=== PATIENT | female | born 2000 | race Caucasian/White ===

== ENCOUNTER 2022-03-24 13:05 | Emergency (ER) | payer BC ==
[~2022-03-24] VITALS: Ht 160 cm; Wt 61.0 kg
[~2022-03-24 13:05] MED LIST: AZIT200S47 PO; HYDR473S16 PO; [UNRECOGNIZED DRUG - CODE] PO; tetracaine lollipops PO
[2022-03-24] MEDS ORDERED: morphine INJ 10 MG/ML 1ML (SYR OR VIAL) IVP STA (13:19)
--- NOTE | 2022-03-24 13:21 | ED Abdominal Pain ---
General Chief Complaint: Abdominal/GI Problems Stated Complaint: ABD PAIN Nursing Triage Note: PT AMB TO ED BY POV WITH C/O RUQ PAIN BEGINNING YESTERDAY, WORSE TODAY. PT ALSO C/O NAUSEA, DENIES VOMITNG, FEVER, OR ANY URINARY SX AT THIS TIME. LBM YESTERDAY, NORMAL FOR HER. Source of Information: Patient Exam Limitations: No Limitations (BASIL GRIMM APRN) History of Present Illness Date Seen by Provider: Mar 24, 2022 Time Seen by Provider: 13:15 Initial Comments Patient is a 21-year-old female who presents to the emergency department for evaluation of right upper quadrant abdominal pain that began yesterday and is progressively worsened today. Patient states she is also had some nausea without vomiting. Last bowel movement was yesterday and normal. Patient denies any recent constipation or diarrhea. LMP was approximately 1 month ago. Patient denies any possibility of . Denies any alleviating or aggravating factors. (BASIL GRIMM APRN) Allergies and Home Medications Allergies Coded Allergies: amoxicillin (Unverified Allergy, Unknown, 03/24/22) RASH Patient Home Medication List Home Medication List Reviewed: Yes (BASIL GRIMM APRN) Azithromycin (Azithromycin 200 Mg/5 Ml Susp) 200 Mg/5 Ml Susp.recon, 1 TSP PO UD, (Reported) Entered as Reported by: LIYAH BURNS on 01/12/10 0935 Hydrocodone Bit/Acetaminophen (Lortab Elixir 7.5 Mg/15 Ml) 480 Ml Solution, 1 TSP PO Q4HR PRN, (Reported) Entered as Reported by: LIYAH BURNS on 01/12/10 0928 Hydrocodone Bit/Acetaminophen (HYDROcodone/APAP 5 MG/325 MG TAB) 1 Tab Tab, 1 TAB PO Q6H PRN for PAIN-MODERATE (5-7) Prescribed by: Basil Grimm on 03/24/22 1456 Ondansetron (Ondansetron Odt) 4 Mg Tab.rapdis, 4 MG SL Q4H PRN for NAUSEA/VOMITING Prescribed by: Basil Grimm on 03/24/22 1455 Polyethylene Glycol 3350 (Miralax) 17 Gram Powd.pack, 17 GM PO DAILY Prescribed by: Basil Grimm on 03/24/22 1455 [tetracaine lollipops] , 1 PO NEEDED, (Reported) Entered as Reported by: LIYAH BURNS on 01/12/10 0933 Review of Systems Review of Systems Constitutional: no symptoms reported EENTM: No Symptoms Reported Respiratory: No Symptoms Reported Cardiovascular: No Symptoms Reported Gastrointestinal: See HPI, Abdominal Pain, Nausea Genitourinary: No Symptoms Reported Musculoskeletal: no symptoms reported Skin: no symptoms reported Psychiatric/Neurological: No Symptoms Reported Endocrine: No Symptoms Reported Hematologic/Lymphatic: No Symptoms Reported (BASIL GRIMM APRN) Past Yayyuxe-Xkrgyg-Kfzyxw Hx Patient Social History Tobacco Use?: No Use of E-Cig and/or Vaping dev: No Substance use?: No Alcohol Use?: No Pt feels they are or have been: No (BASIL GRIMM APRN) Immunizations Up To Date Influenza Vaccine Up-to-Date: No; Not Current First/Initial COVID19 Vaccinat: X3 Second COVID19 Vaccination [place]: X3 Third COVID19 Vaccination Date: X3 (BSAIL GRIMM APRN) Past Medical History Surgery/Hospitalization HX: T&A Reproductive Disorders: No (BASIL GRIMM APRN) Physical Exam Vital Signs Vital Signs - First Documented 03/24/22 13:10 Temp 36.6 Pulse 96 Resp 16 B/P (MAP) 122/80 (94) Pulse Ox 100 O2 Delivery Room Air (REE VARGAS MD) Vital Signs Capillary Refill : Less Than 3 Seconds (BASIL GRIMM APRN) Height/Weight/BMI Height: '" Weight: lbs. oz. kg; 23.00 BMI Method: General Appearance: WD/WN, no apparent distress HEENT: PERRL/EOMI, normal ENT inspection, TMs normal, pharynx normal Neck: non-tender, full range of motion, supple, normal inspection Respiratory: chest non-tender, lungs clear Cardiovascular: regular rate, rhythm Gastrointestinal: normal bowel sounds, non tender, soft Extremities: normal range of motion, non-tender Neurologic/Psychiatric: no motor/sensory deficits, alert, normal mood/affect, oriented x 3 Skin: normal color, warm/dry (BASIL GRIMM APRN) Progress/Results/Core Measures Results/Orders Lab Results Laboratory Tests Test 03/24/22 13:15 03/24/22 13:22 Range/Units Urine Color YELLOW Urine Clarity CLOUDY Urine pH 6.5 5-9 Urine Specific [place] >=1.030 1.016-1.022 Urine Protein 2+ H NEGATIVE Urine Glucose (UA) NEGATIVE NEGATIVE Urine Ketones NEGATIVE NEGATIVE Urine Nitrite NEGATIVE NEGATIVE Urine Bilirubin NEGATIVE NEGATIVE Urine Urobilinogen 0.2 < = 1.0 MG/DL Urine Leukocyte Esterase 1+ H NEGATIVE Urine RBC (Auto) 3+ H NEGATIVE Urine RBC 50-100 H /HPF Urine WBC 5-10 H /HPF Urine Squamous Epithelial Cells 10-25 H /HPF Urine Crystals NONE /LPF Urine Bacteria FEW H /HPF Urine Casts NONE /LPF Urine Mucus MODERATE H /LPF Urine Culture Indicated YES White Blood Count 12.1 H 4.3-11.0 10^3/uL Red Blood Count 4.83 3.80-5.11 10^6/uL Hemoglobin 13.8 11.5-16.0 g/dL Hematocrit 41 35-52 % Mean Corpuscular Volume 84 80-99 fL Mean Corpuscular Hemoglobin 29 25-34 pg Mean Corpuscular Hemoglobin Concent 34 32-36 g/dL Red Cell Distribution Width 12.4 10.0-14.5 % Platelet Count 262 130-400 10^3/uL Mean Platelet Volume 10.4 9.0-12.2 fL Immature Granulocyte % (Auto) 0 % Neutrophils (%) (Auto) 80 H 42-75 % Lymphocytes (%) (Auto) 14 12-44 % Monocytes (%) (Auto) 6 0-12 % Eosinophils (%) (Auto) 1 0-10 % Basophils (%) (Auto) 0 0-10 % Neutrophils # (Auto) 9.6 H 1.8-7.8 10^3/uL Lymphocytes # (Auto) 1.7 1.0-4.0 10^3/uL Monocytes # (Auto) 0.7 0.0-1.0 10^3/uL Eosinophils # (Auto) 0.1 0.0-0.3 10^3/uL Basophils # (Auto) 0.1 0.0-0.1 10^3/uL Immature Granulocyte # (Auto) 0.0 0.0-0.1 10^3/uL Sodium Level 138 135-145 MMOL/L Potassium Level 4.1 3.6-5.0 MMOL/L Chloride Level 107 98-107 MMOL/L Carbon Dioxide Level 22 21-32 MMOL/L Anion Gap 9 5-14 MMOL/L Blood Urea Nitrogen 11 7-18 MG/DL Creatinine 0.79 0.60-1.30 MG/DL Estimat Glomerular Filtration Rate 110 BUN/Creatinine Ratio 14 Glucose Level 94 70-105 MG/DL Calcium Level 9.0 8.5-10.1 MG/DL Corrected Calcium 8.8 8.5-10.1 MG/DL Total Bilirubin 0.5 0.1-1.0 MG/DL Aspartate Amino Transf (AST/SGOT) 19 5-34 U/L Alanine Aminotransferase (ALT/SGPT) 16 0-55 U/L Alkaline Phosphatase 51 40-136 U/L Total Protein 6.5 6.4-8.2 GM/DL Albumin 4.2 3.2-4.5 GM/DL (REE VARGAS MD) Medications Given in ED Current Medications Medications Dose Ordered Sig/Cara Route Start Time Stop Time Status Last Admin Dose Admin Iohexol 100 ml ONCE ONCE IV 03/24/22 13:30 03/24/22 13:31 DC 03/24/22 13:46 80 ML Ketorolac Tromethamine 15 mg ONCE ONCE IVP 03/24/22 14:45 03/24/22 14:46 DC 03/24/22 14:48 15 MG Ondansetron HCl 4 mg ONCE ONCE IVP 03/24/22 13:30 03/24/22 13:31 DC 03/24/22 13:31 4 MG Sodium Chloride 100 ml ONCE ONCE IV 03/24/22 13:30 03/24/22 13:31 DC 03/24/22 13:46 80 ML (REE VARGAS MD) Vital Signs/I&O 03/24/22 03/24/22 13:10 15:02 Temp 36.6 36.6 Pulse 96 80 Resp 16 16 B/P (MAP) 122/80 (94) 118/77 Pulse Ox 100 100 O2 Delivery Room Air Room Air (REE VARGAS MD) Blood Pressure Mean: 94 Progress Progress Note : Progress Note Patient is nontoxic and well-hydrated on exam. Vital signs are reassuring. Abdominal exam notable for right upper quadrant tenderness to palpation. No abdominal distention or rigidity appreciated. Patient is awake alert and oriented and answers all questions appropriately. Patient ambulatory to the ER room without issue. Orders placed for CBC, CMP, urinalysis, bedside test, IV insertion, and CT of the abdomen pelvis with contrast. CBC is reassuring without leukocytosis. CMP without significant metabolic derangement. Bedside test is negative. Urinalysis notable for very mild pyuria as well as hematuria. Patient denying any urinary symptoms and there is no indication for antimicrobial therapy at this time pending urine culture. CT of the abdomen pelvis does show increased stool burden but no other acute abnormalities. Given location of pain biliary colic remains a possibility. No indication further diagnostics at this time. Patient was initially given an IV dose of morphine and Zofran for symptom control. On reassessment patient does still endorse significant pain and thus a dose of IV ketorolac was ordered. Patient will be discharged home with prescriptions for analgesia and antiemetics as well as MiraLAX. Discussed supportive care and anticipatory guidance. Follow-up with PCP. Return precautions for symptomology discussed. Also discussed importance of following up with general surgery for further evaluation. Patient verbalized understanding. (BASIL GRIMM APRN) Departure Impression Primary Impression: Right upper quadrant abdominal pain Disposition: 01 HOME, SELF-CARE Condition: Stable Departure-Patient Inst. Decision time for Depature: 14:45 (BASIL GRIMM APRN) Referrals: MARIANNE ABRAMS MD (PCP/Family) Primary Care Physician Patient Instructions: Abdominal Pain, Adult ED Scripts Polyethylene Glycol 3350 (Miralax) 17 Gram Powd.pack 17 GM PO DAILY for 5 Days, #5 EACH 0 Refills Prov: BASIL GRIMM APRN 03/24/22 Ondansetron (Ondansetron Odt) 4 Mg Tab.rapdis 4 MG SL Q4H PRN for NAUSEA/VOMITING for 3 Days, #18 TAB 0 Refills Prov: BASIL GRIMM APRN 03/24/22 Hydrocodone Bit/Acetaminophen (HYDROcodone/APAP 5 MG/325 MG TAB) 1 Tab Tab 1 TAB PO Q6H PRN for PAIN-MODERATE (5-7) for 3 Days, #12 TAB 0 Refills Prov: BASIL GRIMM APRN 03/24/22 ATTENDING PHYSICIAN NOTE: I was physically present as attending physician in the emergency department during the care of this patient, but I was not directly involved in the decision making or delivery of care for this patient. (REE VARGAS MD) BASIL GRIMM APRN Mar 24, 2022 13:21 REE VARGAS MD Mar 24, 2022 19:52
[2022-03-24 13:26] LABS: BILIRUBIN,URINE NEGATIVE (NEGATIVE); CLARITY,URINE CLOUDY; COLOR,URINE YELLOW; GLUCOSE, URINE (UA) NEGATIVE (NEGATIVE); KETONES,URINE NEGATIVE (NEGATIVE); LEUKOCYTE ESTERASE ,URINE 1+ (NEGATIVE); NITRITE,URINE NEGATIVE (NEGATIVE); PH,URINE 6.5 (5-9); PROTEIN,URINE 2+ (NEGATIVE)
[2022-03-24 13:27] LABS: BASOPHILS # (AUTO) 0.1 10^3/uL (0.0-0.1); BASOPHILS % (AUTO) 0 % (0-10); EOSINOPHILS # (AUTO) 0.1 10^3/uL (0.0-0.3); EOSINOPHILS % (AUTO) 1 % (0-10); HEMATOCRIT 41 % (35-52); HEMOGLOBIN 13.8 g/dL (11.5-16.0); LYMPHOCYTES # (AUTO) 1.7 10^3/uL (1.0-4.0); LYMPHOCYTES % (AUTO) 14 % (12-44); MEAN CORPUSCULAR HEMOGLOBIN 29 pg (25-34); MEAN CORPUSCULAR HGB CONC 34 g/dL (32-36); MEAN CORPUSCULAR VOLUME 84 fL (80-99); MEAN PLATELET VOLUME 10.4 fL (9.0-12.2); MONOCYTES # (AUTO) 0.7 10^3/uL (0.0-1.0); MONOCYTES % (AUTO) 6 % (0-12); NEUTROPHILS # (AUTO) 9.6 10^3/uL (1.8-7.8); NEUTROPHILS % (AUTO) 80 % (42-75); PLATELET COUNT 262 10^3/uL (130-400); WHITE BLOOD COUNT 12.1 10^3/uL (4.3-11.0)
[2022-03-24] MEDS ORDERED: NS 100 ML (IVPB) BAG IV ONE (13:30)
[2022-03-24] MEDS ORDERED: HOLD METFORMIN - RECEIVED CONTRAST 20 ML VIAL IV SCH (13:30)
[2022-03-24] MEDS ORDERED: ONDANSETRON 4 MG/2 ML (SDV) Z0FRAN IVP ONE (13:30)
[2022-03-24] MEDS ORDERED: IOHEXOL 350 MG/ML 100 ML (OMNIPAQUE 350) VIAL IV ONE (13:30)
[2022-03-24 13:34] LABS: BACTERIA,URINE FEW /HPF; RBC,URINE 50-100 /HPF
[2022-03-24 13:46] LABS: ALBUMIN 4.2 GM/DL (3.2-4.5); POTASSIUM 4.1 MMOL/L (3.6-5.0)
[2022-03-24 13:49] LABS: TOTAL PROTEIN 6.5 GM/DL (6.4-8.2)
[2022-03-24 13:50] LABS: BILIRUBIN,TOTAL 0.5 MG/DL (0.1-1.0)
[2022-03-24 13:52] LABS: CREATININE SERUM 0.79 MG/DL (0.60-1.30)
--- NOTE | 2022-03-24 14:22 | Diagnostic Imaging Report ---
PROCEDURE: CT abdomen and pelvis with contrast. TECHNIQUE: Multiple contiguous axial images were obtained through the abdomen and pelvis after administration of intravenous contrast. Auto Exposure Controls were utilized during the CT exam to meet ALARA standards for radiation dose reduction. All CT scans use one or more of the following dose optimizing techniques: automated exposure control, MA and/or KvP adjustment based on patient size and exam type or iterative reconstruction. INDICATION: Right upper quadrant pain. Onset one day ago complaining of nausea and no episodes of vomiting. No priors. There is gaseous and stool dilatation of the colon to the level of the hepatic flexure and descending colon and rectosigmoid nonpathologic are nondilated. There is no rectal impaction. No appreciable mass effect of the region of transition in the left upper quadrant. Stomach, duodenum and small bowel are not pathologically dilated. No pneumatosis. No free gas. No bowel wall thickening. No pericolonic or perienteric edema. There is a trace amount of free fluid in the cul-de-sac within normal physiologic limits of a female patient of this age. The appendix itself could never be definitively identified but there is no pericecal inflammation to suggest underlying appendicitis. The liver, gallbladder and the bile ducts appeared normal. The spleen, adrenals and pancreas normal. The kidneys are unobstructed. The lung bases and bony structures nonacute. IMPRESSION: Proximal to mid colonic constipation and obstipation. Transition at the level of the splenic flexure but no identifiable mass bowel wall thickening or pericolonic edema. No focal inflammation. No perforation. No small bowel dilatation. Trace pelvic free fluid is likely within physiologic limits. No hepatobiliary or urinary tract pathology. Dictated by: Dictated on workstation # [id number]
[2022-03-24] MEDS ORDERED: KETOROLAC 15 MG/ML VIAL IVP ONE (14:45)
[2022-03-24] MEDS ORDERED: ACHD5005 PO (14:55)
[2022-03-24] MEDS ORDERED: POLY17PO6 PO (14:55)
[2022-03-24] MEDS ORDERED: ONDA4TAB11 SL (14:55)
[2022-03-24 15:02] VITALS: BP 118/77
== END 2022-03-24 15:04 | disposition home or self-care (01) ==
LOC: EDUNIT# 13:05 → ER 13:08
DX: R10.11 Right upper quadrant pain (principal); R82.81 Pyuria; R31.9 Hematuria, unspecified; Z32.02 Encounter for pregnancy test, result negative
CPT/HCPCS: 36415; 74177; 80053; 81000; 84703; 85025; 87077; 87088

== ENCOUNTER → 2022-04-03 | Outpatient (CLI) | payer BC ==
[~2022-04-03] MED LIST changes: +ACHD5005 PO; +ONDA4TAB11 SL; +POLY17PO6 PO
--- NOTE | 2022-04-03 10:33 | Diagnostic Imaging Report ---
PROCEDURE: US Gallbladder. TECHNIQUE: Multiple real-time grayscale images were obtained over the right upper quadrant in various projections. INDICATION: Right upper quadrant pain. COMPARISON: CT abdomen pelvis of 03/16/2022 FINDINGS: The liver is normal in size and echogenicity. There is no focal hepatic mass. The main portal vein is patent with antegrade flow. The gallbladder is distended without gallstones, wall thickening, or pericholecystic fluid. The common bile duct measures up to 0.2 cm in diameter. No intrahepatic biliary dilation. The visualized portions of the pancreas are normal. Portions of the head and tail are obscured by overlying bowel gas. The right kidney is normal in size. No hydronephrosis, shadowing calculi, or suspicious mass lesion. IMPRESSION: Normal right upper quadrant ultrasound. Dictated by: Dictated on workstation # [id number]
== END ==
LOC: RAD 08:10
PROVIDERS: ATTEND Family Medicine
DX: R10.11 Right upper quadrant pain (principal)
CPT/HCPCS: 76705

== ENCOUNTER → 2022-04-06 | Outpatient (CLI) | payer BC ==
[~2022-04-06] MED LIST changes: +CATHETER FLUSH 10 ML SYR IVP PRN
--- NOTE | 2022-04-06 14:55 | Diagnostic Imaging Report ---
INDICATION: Right upper quadrant pain. Patient was administered 5.1 mCi technetium 99m Choletec intravenously and imaging over the abdomen was performed. At 60 minutes, the patient ingested 8 ounces of Ensure and the gallbladder ejection fraction was calculated. There is homogeneous uptake of activity by the liver with prompt excretion of activity into the gallbladder and common duct. There is normal passage of activity into the small bowel. Gallbladder ejection fraction is 92%. IMPRESSION: 1. Patent cystic duct and common bile duct. 2. Gallbladder ejection fraction of 92%. Dictated by: Dictated on workstation # [id number]
== END ==
LOC: CARD 12:00
PROVIDERS: ATTEND Family Medicine
DX: R10.11 Right upper quadrant pain (principal)
CPT/HCPCS: 78227; A9537